=== PATIENT | female | born 1980 | race Caucasian/White ===

== ENCOUNTER 2019-01-17 22:20 | Emergency (ER) | payer MEDICAID ==
[~2019-01-17] VITALS: Ht 157.5 cm; Wt 148.8 kg
[2019-01-17 22:39] VITALS: BP 125/73
--- NOTE | 2019-01-17 22:44 | NUR ---
PT AMBULATED TO THE LOBBY, VSS
--- NOTE | 2019-01-18 00:50 | NUR ---
CALLED PT FOR A RE-EVALUATION, NO RESPONSE, LWBS
--- NOTE | 2019-01-18 01:05 | NUR ---
PATIENT LEFT WITHOUT BEING SEEN BY DR. MENDEZ. NO FURTHER CARE PROVIDED FOR PATIENT.
--- NOTE | 2019-01-18 01:05 | NUR ---
CALLED PT FOR THE SECOND TIME, NO ANSWER, LWBS
--- NOTE | 2019-01-18 01:13 | NUR ---
PT CALLED ER AND STATED SHE WAS STILL WAITING TO BE SEEN BUT WAS INSIDE HER CAR. I EXPLAINED TO PATIENT SHE WAS CALLED TWICE WITH NO ANSWER. PT ADVISED SHE WOULD BE PUT BACK INTO [employer] FOR A BED AND WOULD GET NEXT AVAILABLE BED.
--- NOTE | 2019-01-18 01:20 | NUR ---
TAKEN BY WHEEL CHAIR TO BED #7
--- NOTE | 2019-01-18 01:30 | NUR ---
38 YO F BIB SELF PRESENTS TO ED C/O RIGHT SIDE PELVIC/HIP PAIN THAT RADIATES TO LOWER RIGHT SIDE BACK AND DOWN INTO KNEE X 2 WEEKS. PT DENIES RECENT TRAUMA/INJURY. DENIES N/V, DYSURIA, AND NUMBNESS/TINGLING. PT STATES SHE DOES NOT LIKE TO TAKE PAIN MEDICATION. -- PT IS UNCOMFORTABLE. CALM, COOPERATIVE, ANSWERING QUESTIONS APPROPRIATELY. -- SKIN PINK, WARM, DRY. BREATHING EVEN, UNLABORED. -- LAST BM: TODAY. PMH-- CHOLECYSTECTOMY, 2003 RX-- DENIES
[2019-01-18] MEDS ORDERED: KETOROLAC 60 MG/2 ML VIAL IM ONE (01:55)
--- NOTE | 2019-01-18 02:05 | NUR ---
DR. LIU BEDSIDE EVALUATING PT
--- NOTE | 2019-01-18 02:33 | NUR ---
PT WAS OFFERED A MORPHINE INJECTION FOR PAIN AND PT IS REFUSING TO RECEIVE MEDICATION.
--- NOTE | 2019-01-18 02:33 | NUR ---
PT REFUSING TO SIGN DISCHARGE INSTRUCTIONS AT THIS TIME.
--- NOTE | 2019-01-18 02:38 | NUR ---
PT REQUESTING X-RAY. SPOKE WITH DR. LIU AND ORDERS WILL BE PLACE. PT REPORTS SHE CANNOT STAND ON HER RIGHT LEG, NO ISSUES WITH HER LEFT LEG, NOW STATES SHE HAD A FALL X1 MONTH AGO AT [facility] BUT HASN'T HAD PAIN UNTIL NOW. PATIENT C/O RIGHT HIPE AND RIGHT UPPER LEG PAIN. PT DENIES IT IS NOT A MUSCLE PAIN. PT WANTS AN X-RAY TO ENSURE THAT NOTHING IS BROKEN. DR. LIU MADE AWARE.
--- NOTE | 2019-01-18 02:50 | NUR ---
X-RAY AT BEDSIDE.
[2019-01-18 03:20] VITALS: BP 125/73
--- NOTE | 2019-01-18 03:20 | NUR ---
Patient discharged with stable vitals. Written and verbal after care instructions given and explained. Patient alert, oriented and verbalized understanding of instructions.pt was Wheel Chair Assisted out of the lobby and walked to car with no assistance. pt was offered assistance, but pt refused help. All questions addressed prior to discharge. pt was instructed to follow up with pcp and physical therapy if needed. ID band removed. . Rx of IBUPROFEN given. Patient educated on indication of medication including possible reaction and side effects.pt had no further questions. pt refused pain medication prior to d/c.
== END 2019-01-18 03:20 | disposition home or self-care (01) ==
LOC: MED 22:20
DX: M54.5 Low back pain (principal); Z90.49 Acquired absence of other specified parts of digestive tract
CPT/HCPCS: 73502; 81002; 81025; 96372; 99283; J1885; Q0092

== ENCOUNTER 2019-09-11 01:53 | Emergency (ER) | payer MEDICAID, OTHER ==
[~2019-09-11] VITALS: Ht 154.9 cm; Wt 145.1 kg
[2019-09-11 02:03] VITALS: BP 125/65
--- NOTE | 2019-09-11 02:28 | NUR ---
PT WOUND IRRIGATED WITH NORMAL SALINE
--- NOTE | 2019-09-11 04:30 | NUR ---
SEEN AND EXAMINED BY MARKY WITH ORDERS AND CARRIED OUT.
--- NOTE | 2019-09-11 04:40 | NUR ---
MEDICATED PER ERMDS ORDER, TOLERATED WELL.
--- NOTE | 2019-09-11 05:05 | NUR ---
ASSISTED DR SOUTH WITH DERMABOND PROCEDURE
--- NOTE | 2019-09-11 05:07 | NUR ---
PT 4TH FINGER ON R HAND WRAPPED IN LONG FINGER SPLINT, WRAPPED WITH ROLDAN WRAP. +CAP REFILL
[2019-09-11 05:26] VITALS: BP 120/70
== END 2019-09-11 05:26 | disposition home or self-care (01) ==
LOC: MED 01:53
DX: S61.214A Laceration without foreign body of right ring finger without damage to nail, initial encounter (principal); W25.XXXA Contact with sharp glass, initial encounter; Y93.89 Activity, other specified; Y92.89 Other specified places as the place of occurrence of the external cause; Y99.8 Other external cause status
CPT/HCPCS: 12001; 73130; 81025; 90471; 90715; 99283; Q0092